=== PATIENT | male | born 1955 | race Caucasian/White ===

== ENCOUNTER 2017-02-15 14:27 | Emergency (ER) | payer OTHER ==
[2017-02-15 15:00] VITALS: BP 129/65; PULSE 98; RESP 18; TEMP 98.6
[2017-02-15] MEDS ORDERED: DIPH,PERTUS(ACELL)TETVAC-LF 0.5 ML VIAL IM ONE (15:10)
[2017-02-15] MEDS ORDERED: TOBRAMYCIN 0.3% OPHTH DROPS 5 ML BTL LEFT EYE STA (15:10)
[2017-02-15] MEDS ORDERED: PROPARACAINE 0.5% OPHTH DROPS 15 ML BTL LEFT EYE STA (15:10)
--- NOTE | 2017-02-15 15:34 | ED ---
Eye Problem HPI - General Chief complaint: Eye Problems Stated complaint: FB left eye Time Seen by Provider: 02/15/17 15:02 Source: patient, RN notes reviewed Mode of arrival: ambulatory Limitations: no limitations - History of Present Illness Initial comments: 61-year-old male presents emergency Department chief complaint left eye foreign by 4 days. 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 He states started throughout thesuccess. Unsure when his last tetanus was. Denies any blurred vision. He states his right, irritated. - Related Data Home Medications Medication Instructions Recorded Confirmed No Known Home Medications [No 02/15/17 02/15/17 Known Home Medications] Allergies Allergy/AdvReac Type Severity Reaction Status Date / Time No Known Allergies Allergy Verified 02/15/17 15:00 Review of Systems ROS Statement: Those systems with pertinent positive or pertinent negative responses have been documented in the HPI. ROS Other: All systems not noted in ROS Statement are negative. Past Medical History Past Medical History: No Reported History History of Any Multi-Drug Resistant Organisms: None Reported Past Surgical History: Orthopedic Surgery Additional Past Surgical History / Comment(s): Rt knee Past Psychological History: No Psychological Hx Reported Smoking Status: Current some day smoker Past Alcohol Use History: Occasional Past Drug Use History: None Reported General Exam Limitations: no limitations General appearance: alert, in no apparent distress Head exam: Present: atraumatic, normocephalic, normal inspection Eye exam: Present: PERRL, EOMI, conjunctival injection (Left), other (Patient had complete relief with proparacaine, Wood lamp was used to visualize foreign body. This was removed using Elgar brush patient tolerated well no loss ring). Absent: normal appearance (Foreign body noted in the central region on the left eye), scleral icterus, periorbital swelling ENT exam: Present: normal exam, mucous membranes moist Neck exam: Present: normal inspection. Absent: tenderness, meningismus, lymphadenopathy Respiratory exam: Present: normal lung sounds bilaterally. Absent: respiratory distress, wheezes, rales, rhonchi, stridor Cardiovascular Exam: Present: regular rate, normal rhythm, normal heart sounds. Absent: systolic murmur, diastolic murmur, rubs, gallop, clicks Course Vital Signs 02/15/17 14:58 Temperature 98.6 F Pulse Rate 98 Respiratory 18 Rate Blood Pressure 129/65 O2 Sat by Pulse 96 Oximetry Medical Decision Making - Medical Decision Making 61-year-old male presented for left eye irritation foreign body. This was removed. Patient tetanus was updated. Patient will follow-up ophthalmology if needed. Patient we discharged on Tobrex eyedrops. Disposition Clinical Impression: Foreign body in cornea Disposition: HOME SELF-CARE Condition: Stable Instructions: Eye Foreign Body (ED) Additional Instructions: Please return to the Emergency Department if symptoms worsen or any other concerns. Use Tobrex eyedrops 1 drop to the left eye every 4 hours for 5 days. Referrals: None,Stated [Primary Care Provider] - 1-2 days Marcia Garcia MD [STAFF PHYSICIAN] - 1-2 days Time of Disposition: 15:34
== END 2017-02-15 15:42 | disposition home or self-care (01) ==
LOC: EC 14:27
DX: T15.02XA Foreign body in cornea, left eye, initial encounter (principal); F17.200 Nicotine dependence, unspecified, uncomplicated; Z23 Encounter for immunization
CPT/HCPCS: 65222; 90471; 90715; 99283

== ENCOUNTER → 2019-08-08 | Outpatient (CLI) | payer OTHER ==
--- NOTE | 2019-08-09 09:29 | XR ---
Right foot HISTORY: Right foot plantar pain 3 views of the right foot Bone mineralization is mildly reduced. Alignment and joint spaces are within normal limits. No fractu re or dislocation. Small plantar calcaneal spur is present. IMPRESSION: Small plantar calcaneal spur.
== END | disposition home or self-care (01) ==
LOC: RADXRMAIN 16:24
PROVIDERS: ATTEND Physician Assistant
DX: M77.31 Calcaneal spur, right foot (principal)

== ENCOUNTER → 2019-09-15 | Outpatient (CLI) | payer OTHER ==
--- NOTE | 2019-09-16 14:10 | US ---
EXAMINATION TYPE: US extremity nonvasc mass RT DATE OF EXAM: 09/15/2019 COMPARISON: NONE CLINICAL HISTORY: M79.671 pain in the rt foot, R22.41. palpable on ball of foot inferior to toes Hypoechoic lesion measuring 0.4 x 0.3 x 0.4cm, non vascular. Does not appear to be related to Best' s Neuroma due to location positioned so inferior. IMPRESSION: Nonspecific hypoechoic lesion as discussed. Consider MRI of the foot with and without contrast.
== END | disposition home or self-care (01) ==
LOC: RADUSWWP 15:10
PROVIDERS: ATTEND Physician Assistant
DX: M25.871 Other specified joint disorders, right ankle and foot (principal)